=== PATIENT | male | born 1980 | race Caucasian/White ===

== ENCOUNTER 2024-07-18 15:45 | Emergency (ER) | payer SELFPAY ==
[2024-07-18 16:15] VITALS: BP 101/78; PULSE 87; RESP 18; TEMP 97.8; BMI 29.8
[2024-07-18] MEDS ORDERED: MAG HYDROX/AL HYDROX/SIMETH 30 ML UNIT-DOSE CUP ONE (17:17)
[2024-07-18] MEDS ORDERED: FAMOTIDINE 20 MG/50 ML IVPB 20 MG/50 ML MG IVPB ONE (17:17)
[2024-07-18] MEDS ORDERED: ACETAMINOPHEN INJECTION 100 ML ONE (17:17)
[2024-07-18] MEDS: MAG HYDROX/AL HYDROX/SIMETH 30 ML UNIT-DOSE CUP PO ONE (17:25)
[2024-07-18 17:26] LABS: HEMOGLOBIN 14.6 G/dL (11.7-16.9); MCH 28.5 pg (25.7-33.7); MCHC 31.8 g/dl (32.0-35.9); MEAN CELL VOLUME 89.4 fl (80-96); MEAN PLT VOLUME 8.7 fl (7.5-11.1); PLATELET COUNT 230.6 10^3/uL (134-434); RBC 5.14 10^6/uL (4.00-5.60); RDW 14.3 % (11.9-15.9); WHITE BLOOD COUNT 9.4 10^3/uL (4.0-10.8)
[2024-07-18] MEDS: ACETAMINOPHEN 1000 MG/100 ML BAG IVPB ONE (17:27)
[2024-07-18] MEDS: FAMOTIDINE 20 MG/50 ML IVPB 20 MG/50 ML MG IVPB ONE (17:56)
[2024-07-18 17:58] LABS: ALBUMIN 4.3 g/dl (3.4-5.0); ALK PHOS 65 U/L (45-117); ANION GAP 5 mmol/L (4-13); BILIRUBIN,TOTAL 0.3 mg/dl (0.2-1); CALCIUM 9.1 mg/dl (8.5-10.1); CHLORIDE 103 mmol/L (98-107); CO2 28 mmol/L (21-32); GLUCOSE,RANDOM 86 mg/dl (74-106); POTASSIUM 4.1 mmol/L (3.5-5.1); SGOT/AST 18 U/L (15-37); SGPT/ALT 29 U/L (7-52); SODIUM 136 mmol/L (136-145)
[2024-07-18 18:18] LABS: PLATELET ESTIMATE ADEQUATE
== END 2024-07-18 19:30 | disposition home or self-care (01) ==
LOC: FER 15:45
PROC: 3E033GC Introduction of Other Therapeutic Substance into Peripheral Vein, Percutaneous Approach (ICD-10-PCS; principal; 2024-07-18)
PROC: 3E033NZ Introduction of Analgesics, Hypnotics, Sedatives into Peripheral Vein, Percutaneous Approach (ICD-10-PCS; 2024-07-18)
DX: R10.32 Left lower quadrant pain (principal)
CPT/HCPCS: 36415; 74177-TC; 76700-TC; 80053; 81003; 83690; 85027; 87086; 99285-25; J0131; Q9967